=== PATIENT | male | born 1970 | race Caucasian/White ===

== ENCOUNTER 2020-02-17 23:45 | Emergency (ER) | payer MEDICAID ==
[~2020-02-17] VITALS: Ht 182.9 cm; Wt 84.1 kg
[2020-02-17 23:50] VITALS: BP 152/97
[2020-02-18] MEDS ORDERED: SULF1TAB49 PO (00:23)
[2020-02-18] MEDS ORDERED: CEPH500C5 PO (00:23)
[2020-02-18] MEDS ORDERED: sulfamethoxazole/trimethoprim DS (800/160mg) tablet PO ONE (00:25)
[2020-02-18] MEDS ORDERED: cephalexin 250mg capsule PO ONE (00:25)
== END 2020-02-18 00:59 | disposition home or self-care (01) ==
LOC: ER 23:46
DX: L03.116 Cellulitis of left lower limb (principal); L02.416 Cutaneous abscess of left lower limb; F11.10 Opioid abuse, uncomplicated; F17.200 Nicotine dependence, unspecified, uncomplicated; Z79.2 Long term (current) use of antibiotics
CPT/HCPCS: 99284

== ENCOUNTER 2020-09-04 12:54 | Emergency (ER) | payer MEDICAID ==
[~2020-09-04] VITALS: Ht 182.9 cm; Wt 88.3 kg
[~2020-09-04 12:54] MED LIST: CEPH-585 PO
[2020-09-04] MEDS ORDERED: sulfamethoxazole/trimethoprim DS (800/160mg) tablet PO ONE (13:50)
[2020-09-04] MEDS ORDERED: cephalexin 500mg capsule PO ONE (13:50)
[2020-09-04] MEDS ORDERED: NORMAL SALINE IV STA (16:06)
[2020-09-04] MEDS ORDERED: GENTAMICIN IV STA (16:06)
[2020-09-04] MEDS ORDERED: probenecid 500mg tablet PO ONE (16:10)
[2020-09-04] MEDS ORDERED: CEPH-585 PO (16:20)
[2020-09-04] MEDS ORDERED: SULF1TAB45 PO (16:20)
[2020-09-04] MEDS ORDERED: ampicillin/sulbac 3gm/NS 100ml 100 ML IV ONE (16:30)
[2020-09-04] MEDS ORDERED: gentamicin inj 450 MG in normal saline 100ml IV soln 88.75 ML IV STA (16:32)
[2020-09-04 19:22] VITALS: BP 127/73
[2020-09-04] MEDS ORDERED: ampicillin/sulbac 3gm/NS 100ml 100 ML IV SCH (20:00)
== END 2020-09-04 19:23 | disposition home or self-care (01) ==
LOC: ER 12:54
DX: L03.115 Cellulitis of right lower limb (principal); Z90.89 Acquired absence of other organs; Z79.899 Other long term (current) drug therapy
CPT/HCPCS: 76937; 96365; 96368; 99284; J1580; J0295

== ENCOUNTER 2020-10-04 01:43 | Inpatient (IN) | payer MEDICAID ==
[~2020-10-04] VITALS: Ht 182.9 cm; Wt 86.4 kg
[2020-10-04] MEDS ORDERED: piperacillin/tazo 3.375gm/50ml 50 ML IV ONE (02:05)
[2020-10-04] MEDS ORDERED: ketorolac trometh. 30mg/ml inj. IV ONE (02:05)
[2020-10-04] MEDS ORDERED: vancomycin/NS 1 GM ADD-VANTAGE 250 ML IV ONE (02:05)
[2020-10-04] MEDS ORDERED: iohexol 300mg/ml 100ml inj. ONE (02:07)
[2020-10-04 02:24] LABS: BASOPHILS # (AUTO) 0.1 X10'3 (0-0.2); BASOPHILS % (AUTO) 0.7 % (0-1); EOSINOPHILS # (AUTO) 0.4 X10'3 (0-0.9); EOSINOPHILS % (AUTO) 3.3 % (0-6); HEMATOCRIT 37.9 % (42.0-52.0); HEMOGLOBIN 12.7 g/dl (14.0-17.9); LYMPHOCYTES # (AUTO) 2.6 X10'3 (1.1-4.8); LYMPHOCYTES % (AUTO) 21.9 % (21-51); MEAN CORPUSCULAR HEMOGLOBIN 28.6 PG (27.0-31.0); MEAN CORPUSCULAR HGB CONC 33.4 g/dL (33.0-36.5); MEAN CORPUSCULAR VOLUME 85.6 FL (78-98); MEAN PLATELET VOLUME 8.1 FL (7.4-10.4); MONOCYTES % (AUTO) 8.7 % (2-12); NEUTROPHILS # (AUTO) 7.7 X10'3 (1.8-7.7); NEUTROPHILS % (AUTO) 65.4 % (42-75); PLATELET COUNT 242 X10'3 (140-440); RED BLOOD COUNT 4.43 X10'6 (4.70-6.10); WHITE BLOOD COUNT 11.8 X10'3 (4.5-11.0)
[2020-10-04 02:26] LABS: ALANINE AMINOTRANSFERASE 51 U/L (12-78); ALBUMIN 3.4 G/DL (3.4-5.0); ALBUMIN/GLOBULIN RATIO 0.7 (1.1-1.5); ALKALINE PHOSPHATASE 110 IU/L (46-116); ANION GAP 8 (8-16); ASPARTATE AMINO TRANSFERASE 32 U/L (10-37); BILIRUBIN,TOTAL 0.6 MG/DL (0.1-1.0); BLOOD UREA NITROGEN 14 MG/DL (7-18); BUN/CREATININE RATIO 12.6 (5.4-32.0); CALCIUM 8.4 MG/DL (8.5-10.1); CHLORIDE 104 MMOL/L (99-107); CREATININE 1.11 MG/DL (0.60-1.10); GLUCOSE 97 MG/DL (70-104); POTASSIUM 4.1 MMOL/L (3.5-5.1); SODIUM 140 MMOL/L (135-145); TOTAL PROTEIN 8.2 G/DL (6.4-8.2); eGFR 71 ML/MIN
[2020-10-04 02:45] LABS: COLOR,URINE YELLOW (Yellow); GLUCOSE, URINE NEGATIVE (Neg); KETONES,URINE NEGATIVE (Neg); LEUKOCYTE ESTERASE ,URINE NEGATIVE (Neg); NITRITES, URINE NEGATIVE (Neg); OCCULT BLOOD,URINE NEGATIVE (Neg); PROTEIN,URINE NEGATIVE (Neg)
[2020-10-04 02:55] LABS: CLARITY,URINE CLEAR (Clear); UA COLLECTION TYPE CLN CATCH MIDSTREAM
[2020-10-04] MEDS ORDERED: NO HOME MEDS (03:03)
[2020-10-04] MEDS ORDERED: potassium Cl 20 mEq SR tablet PO PRN (04:05)
[2020-10-04] MEDS ORDERED: magnesium Cl slow-release 64mg tablet PO PRN (04:05)
[2020-10-04] MEDS ORDERED: magnesium hydroxide 30ml (MOM) UD suspension PO PRN (04:05)
[2020-10-04] MEDS ORDERED: acetaminophen 325mg tablet PO PRN (04:05)
[2020-10-04] MEDS ORDERED: magnesium 4gm in 100ml NS 100 ML IV PRN (04:05)
[2020-10-04] MEDS ORDERED: mag hydrox/Alum hydrox/simeth 30ml oral suspension PO PRN (04:05)
[2020-10-04] MEDS ORDERED: HYDROcodone/acetaminophen 5mg/325mg tablet PO PRN (04:05)
[2020-10-04] MEDS ORDERED: magnesium 2GM in 50ml NS 50 ML IV PRN (04:05)
[2020-10-04] MEDS ORDERED: potassium Cl 40MEQ/1/2NS 520ml 520 ML IV PRN ×2 (04:05)
[2020-10-04 05:25] VITALS: BP 122/76
--- NOTE | 2020-10-04 05:25 | NUR ---
PATIENT ADMITTED TO ROOM 349B FROM ER FOR CELLULITIS TO LEFT ARM. PLACED COMFORTABLE IN BED. VITAL SIGNS TAKEN AND RECORDED.
--- NOTE | 2020-10-04 06:30 | NUR ---
Problems reprioritized. Patient report given, questions answered & plan of care reviewed with ABENA ALMONTE.
[2020-10-04 07:00] VITALS: BP 131/82
--- NOTE | 2020-10-04 07:10 | NUR ---
Patient in room [facility] 349. I have received report from Raven Carbajal RN and had the opportunity to ask questions and assume patient care.
[2020-10-04] MEDS: K and/or MAG REPLACEMENT MC SCH ×2 (08:00→20:00)
[2020-10-04] MEDS: vancomycin/NS 1 GM ADD-VANTAGE 250 ML IV SCH (09:45)
[2020-10-04] MEDS: ondansetron/PF 4mg/2ml inj IV PRN (09:47)
[2020-10-04 11:00] VITALS: BP 116/41
[2020-10-04] MEDS: methadone 10mg tablet PO SCH ×2 (13:51→23:43)
[2020-10-04] MEDS: piperacillin/tazo 3.375gm/50ml 50 ML IV SCH ×2 (16:25→23:43)
--- NOTE | 2020-10-04 18:23 | NUR ---
Patient in room [facility] 349. I have received report from Raven Carbajal RN and had the opportunity to ask questions and assume patient care.
--- NOTE | 2020-10-04 18:30 | NUR ---
Patient in room [facility] 349. I have received report from ABENA ALMONTE and had the opportunity to ask questions and assume patient care.
[2020-10-04 20:00] VITALS: BP 123/66
[2020-10-04] MEDS: lactobacillus rhamnosus 10,000 MMU CELLS/CAPSULE PO SCH (20:47)
[2020-10-05] VITALS: BP 120/71
--- NOTE | 2020-10-05 01:10 | NUR ---
PAGED DR. AMATO FOR POSITIVE BLOOD CULTURE GRAM + COCCI IN CLUSTERS AEROBIC BOTTLE DRAWN 10/04/20.
[2020-10-05] MEDS: vancomycin/NS 1 GM ADD-VANTAGE 250 ML IV SCH ×3 (04:01→22:49)
[2020-10-05] MEDS: morphine 2 MG/ML inj. syringe IV PRN ×5 (04:02→23:29)
[2020-10-05] MEDS: ondansetron/PF 4mg/2ml inj IV PRN (04:05)
--- NOTE | 2020-10-05 06:25 | NUR ---
Problems reprioritized. Patient report given, questions answered & plan of care reviewed with JUWAN RN.
--- NOTE | 2020-10-05 06:25 | NUR ---
Patient in room [facility] 349. I have received report from Raven Carbajal RN and had the opportunity to ask questions and assume patient care.
[2020-10-05 06:30] VITALS: BP 114/72
[2020-10-05] MEDS: methadone 10mg tablet PO SCH ×2 (08:34→20:41)
[2020-10-05] MEDS: lactobacillus rhamnosus 10,000 MMU CELLS/CAPSULE PO SCH ×2 (08:34→20:42)
[2020-10-05] MEDS: piperacillin/tazo 3.375gm/50ml 50 ML IV SCH ×2 (08:38→17:15)
[2020-10-05 09:07] LABS: BASOPHILS # (AUTO) 0.1 X10'3 (0-0.2); BASOPHILS % (AUTO) 1.2 % (0-1); EOSINOPHILS # (AUTO) 0.1 X10'3 (0-0.9); EOSINOPHILS % (AUTO) 0.5 % (0-6); HEMATOCRIT 33.8 % (42.0-52.0); HEMOGLOBIN 11.5 g/dl (14.0-17.9); LYMPHOCYTES # (AUTO) 2.2 X10'3 (1.1-4.8); LYMPHOCYTES % (AUTO) 17.5 % (21-51); MEAN CORPUSCULAR HEMOGLOBIN 28.8 PG (27.0-31.0); MEAN CORPUSCULAR HGB CONC 34.1 g/dL (33.0-36.5); MEAN CORPUSCULAR VOLUME 84.3 FL (78-98); MEAN PLATELET VOLUME 8.5 FL (7.4-10.4); MONOCYTES # (AUTO) 0.7 X10'3 (0-0.9); MONOCYTES % (AUTO) 5.8 % (2-12); NEUTROPHILS # (AUTO) 9.4 X10'3 (1.8-7.7); PLATELET COUNT 209 X10'3 (140-440); RED BLOOD COUNT 4.01 X10'6 (4.70-6.10); RED CELL DISTRIBUTION WIDTH 16.7 % (11.5-14.5); WHITE BLOOD COUNT 12.5 X10'3 (4.5-11.0)
[2020-10-05 09:31] LABS: ALANINE AMINOTRANSFERASE 39 U/L (12-78); ALBUMIN 2.8 G/DL (3.4-5.0); ALBUMIN/GLOBULIN RATIO 0.6 (1.1-1.5); ALKALINE PHOSPHATASE 93 IU/L (46-116); ANION GAP 11 (8-16); ASPARTATE AMINO TRANSFERASE 28 U/L (10-37); BILIRUBIN,TOTAL 0.5 MG/DL (0.1-1.0); BLOOD UREA NITROGEN 10 MG/DL (7-18); BUN/CREATININE RATIO 11.6 (5.4-32.0); CALCIUM 8.3 MG/DL (8.5-10.1); CHLORIDE 104 MMOL/L (99-107); CREATININE 0.86 MG/DL (0.60-1.10); GLUCOSE 119 MG/DL (70-104); MAGNESIUM 2.2 MG/DL (1.5-2.4); POTASSIUM 3.4 MMOL/L (3.5-5.1); SODIUM 140 MMOL/L (135-145); TOTAL CARBON DIOXIDE 24.6 MMOL/L (24-32); TOTAL PROTEIN 7.4 G/DL (6.4-8.2); eGFR > 90 ML/MIN
[2020-10-05] MEDS: K and/or MAG REPLACEMENT MC SCH ×2 (09:43→20:00)
[2020-10-05] MEDS: potassium Cl 20 mEq SR tablet PO PRN ×3 (10:11→17:53)
[2020-10-05 11:00] VITALS: BP 143/74
[2020-10-05] MEDS ORDERED: VANCOMYCIN LEVEL IV ONE (14:30)
--- NOTE | 2020-10-05 18:20 | NUR ---
Problems reprioritized. Patient report given, questions answered & plan of care reviewed with Raven Carbajal RN.
--- NOTE | 2020-10-05 18:30 | NUR ---
Patient in room [facility] 349. I have received report from JUWAN ALMONTE and had the opportunity to ask questions and assume patient care.
[2020-10-05 20:00] VITALS: BP 103/58
[2020-10-06] VITALS (19 sets, daily range): BP systolic 112–161; BP diastolic 63–99
[2020-10-06] MEDS: piperacillin/tazo 3.375gm/50ml 50 ML IV SCH ×3 (00:30→16:07)
[2020-10-06] MEDS: morphine 2 MG/ML inj. syringe IV PRN ×4 (03:56→20:37)
--- NOTE | 2020-10-06 06:30 | NUR ---
Problems reprioritized. Patient report given, questions answered & plan of care reviewed with NANDINI ALMONTE.
--- NOTE | 2020-10-06 06:35 | NUR ---
Patient in room [facility] 349. I have received report from lauren mauro and had the opportunity to ask questions and assume patient care.
[2020-10-06 07:38] LABS: BASOPHILS # (AUTO) 0.1 X10'3 (0-0.2); BASOPHILS % (AUTO) 0.7 % (0-1); EOSINOPHILS # (AUTO) 0.2 X10'3 (0-0.9); HEMATOCRIT 39.3 % (42.0-52.0); HEMOGLOBIN 13.3 g/dl (14.0-17.9); LYMPHOCYTES # (AUTO) 2.6 X10'3 (1.1-4.8); MEAN CORPUSCULAR HEMOGLOBIN 28.8 PG (27.0-31.0); MEAN CORPUSCULAR VOLUME 84.8 FL (78-98); MONOCYTES % (AUTO) 8.3 % (2-12); NEUTROPHILS # (AUTO) 7.6 X10'3 (1.8-7.7); PLATELET COUNT 290 X10'3 (140-440); RED BLOOD COUNT 4.63 X10'6 (4.70-6.10); RED CELL DISTRIBUTION WIDTH 17.3 % (11.5-14.5); WHITE BLOOD COUNT 11.5 X10'3 (4.5-11.0)
[2020-10-06 07:56] LABS: ALANINE AMINOTRANSFERASE 35 U/L (12-78); ALBUMIN 3.1 G/DL (3.4-5.0); ALBUMIN/GLOBULIN RATIO 0.6 (1.1-1.5); ALKALINE PHOSPHATASE 92 IU/L (46-116); ANION GAP 10 (8-16); ASPARTATE AMINO TRANSFERASE 22 U/L (10-37); BILIRUBIN,TOTAL 0.4 MG/DL (0.1-1.0); BLOOD UREA NITROGEN 8 MG/DL (7-18); BUN/CREATININE RATIO 9.5 (5.4-32.0); CALCIUM 8.8 MG/DL (8.5-10.1); CHLORIDE 105 MMOL/L (99-107); CREATININE 0.84 MG/DL (0.60-1.10); GLUCOSE 95 MG/DL (70-104); MAGNESIUM 2.1 MG/DL (1.5-2.4); POTASSIUM 3.7 MMOL/L (3.5-5.1); SODIUM 141 MMOL/L (135-145); TOTAL CARBON DIOXIDE 26.2 MMOL/L (24-32); TOTAL PROTEIN 8.2 G/DL (6.4-8.2); eGFR > 90 ML/MIN
[2020-10-06] MEDS: K and/or MAG REPLACEMENT MC SCH ×2 (08:00→20:00)
[2020-10-06] MEDS: vancomycin/NS 1 GM ADD-VANTAGE 250 ML IV SCH ×3 (08:14→22:44)
[2020-10-06] MEDS: lactobacillus rhamnosus 10,000 MMU CELLS/CAPSULE PO SCH ×2 (08:14→20:37)
[2020-10-06] MEDS: methadone 10mg tablet PO SCH ×2 (08:14→20:37)
[2020-10-06] MEDS ORDERED: ondansetron 4mg rapidly disintigrating tab PO PRN (11:30)
[2020-10-06] MEDS ORDERED: VANCOMYCIN LEVEL IV ONE (14:30)
[2020-10-06 16:19] LABS: PARTIAL THROMBOPLASTIN TIME 25 SECONDS (22-32)
[2020-10-06] MEDS ORDERED: hydrALAZINE 20mg/ml inj. IV PRN (17:40)
[2020-10-06] MEDS ORDERED: ringers solution, lacted 1,000 ML IV SCH (17:40)
[2020-10-06] MEDS ORDERED: ondansetron/PF 4mg/2ml inj IV PRN (17:40)
[2020-10-06] MEDS ORDERED: labetalol 20mg/4ml (5mg/ml) syringe IV PRN (17:40)
[2020-10-06] MEDS ORDERED: morphine 4 MG/ML inj SYRINge IV PRN (17:40)
[2020-10-06] MEDS ORDERED: HYDROmorphone/PF 0.2 MG/ML SYRINGE IV PRN (17:40)
[2020-10-06] MEDS ORDERED: morphine 2 MG/ML inj. syringe IV PRN (17:40)
[2020-10-06] MEDS ORDERED: MIDAZolam 1 MG/ML 5ML VIAL ONE (17:44)
[2020-10-06] MEDS ORDERED: fentaNYL/PF 50MCG/1 ML 2ML syringe ONE (17:44)
[2020-10-06] MEDS ORDERED: LIDOcaine 2% (20mg/ml) 5ml vial ONE (17:46)
[2020-10-06] MEDS ORDERED: propofol inj 20 ML IV ONE (17:46)
[2020-10-06] MEDS ORDERED: ondansetron/PF 4mg/2ml inj ONE (17:46)
[2020-10-06] MEDS ORDERED: BUPIVAcaine/PF 2.5 mg/ml (0.25%) 30ml vial ONE (17:53)
--- NOTE | 2020-10-06 18:00 | NUR ---
In the OR at 1800 Addendum: 10/06/20 at 2050 by Marleni Colvin RN Amended: Links added.
[2020-10-06] MEDS ORDERED: sevoflurane 250ml liquid IH ONE (18:05)
[2020-10-06] MEDS ORDERED: dexamethasone sod phosphate 10mg/ml inj ONE (18:05)
--- NOTE | 2020-10-06 18:30 | NUR ---
patient agitated at times. Iv removed from left neck and resited by ER staff to right foot. Difficulty also accessing blood for labs new IV placed in right forearm. patient given MS for pain with some relief in left arm. . patient seen by Dr Patton is for surgery. patient prepared for surgery. Taken to to surgery [id number] Report given to Latha ALMONTE
--- NOTE | 2020-10-06 18:43 | NUR ---
Patient in room [facility] 349. I have received report from NANDINI ALMONTE and had the opportunity to ask questions and assume patient care. Addendum: 10/06/20 at 1844 by Marleni Colvin RN Amended: Links added.
--- NOTE | 2020-10-06 18:45 | NUR ---
Received from OR via BED, accompanied by Anesthesiologist EMILI and report given by Anesthesiolgist. PT DROWSY, OXYGENATING WELL ON 10 LPM O2 VIA MASK, NO RESP DISTRESS NOTED. DENIES NAUSEA, C/O SEVERE 10/10 PAIN TO L HAND WHEN AWAKE, MOANING AND CRYING. MEDICATED PRN, SEE EMAR. VSS, SCDS ON.
[2020-10-06] MEDS: HYDROmorphone/PF 0.2 MG/ML SYRINGE IV PRN ×3 (19:11→19:47)
--- NOTE | 2020-10-06 20:00 | NUR ---
Patient in room [facility] 349. I have received report from [facility] wire spooler and had the opportunity to ask questions and will assume patient care upon arrival to the floor. Addendum: 10/06/20 at 2000 by Marleni Colvin RN Amended: Links added.
--- NOTE | 2020-10-06 20:10 | NUR ---
VSS, TOLERATING PO FLUIDS WELL. PAIN IN LEFT WRIST/HAND SURGERY SITE STILL SEVERE, DESPITE MULTIPLE NARCOTICS GIVEN IN PACU. PT RESTING QUIETLY AT THE TIME OF TRANSFER. REPORT GIVEN TO RECEIVING RN ON SURGICAL FLOOR, PT TRANSFERRED IN STABLE CONDITION.
--- NOTE | 2020-10-06 20:41 | NUR ---
medicated for pain with morphine 2mg and hs medications given. drank 400 apple juice with water and ice and ate a turkey sandwich. pt tolerated well. then voided 400cc in the urinal.
--- NOTE | 2020-10-06 20:50 | NUR ---
in the or Addendum: 10/06/20 at 2049 by Marleni Colvin RN Amended: Links added.
--- NOTE | 2020-10-06 21:15 | NUR ---
pt ate whole turkey sandwich no complaints, talked with girlfriend on the phone.
--- NOTE | 2020-10-06 23:00 | NUR ---
resting eyes closed arm elevated up on pillows.
[2020-10-07] VITALS: BP 131/44
[2020-10-07] MEDS: morphine 2 MG/ML inj. syringe IV PRN ×5 (00:27→22:52)
[2020-10-07] MEDS: piperacillin/tazo 3.375gm/50ml 50 ML IV SCH ×3 (00:28→17:03)
--- NOTE | 2020-10-07 00:34 | NUR ---
pt medicated for pain with 2mg of morphine and left arm reelevated with pillows for pain and swelling control. good cms noted at this time. teaching regarding medication and importance of treatment gone over with the pt and teaching regarding how bad this infection is. pt appears to understand this by his statement.
--- NOTE | 2020-10-07 04:40 | NUR ---
pt medicated for pain 7-8/10 to left hand with morphine after voiding in the urinal.
--- NOTE | 2020-10-07 06:22 | NUR ---
Problems reprioritized. Patient report given, questions answered & plan of care reviewed with EZ ALMONTE. Addendum: 10/07/20 at 0622 by Marleni Colvin RN Amended: Links added.
[2020-10-07 07:00] VITALS: BP 112/64
[2020-10-07] MEDS: K and/or MAG REPLACEMENT MC SCH ×2 (08:00→20:00)
[2020-10-07] MEDS: methadone 10mg tablet PO SCH ×2 (08:33→20:39)
[2020-10-07] MEDS: lactobacillus rhamnosus 10,000 MMU CELLS/CAPSULE PO SCH ×2 (08:33→20:39)
[2020-10-07] MEDS: vancomycin/NS 1 GM ADD-VANTAGE 250 ML IV SCH ×3 (08:33→22:46)
[2020-10-07 11:00] VITALS: BP_SYST 104; BP_SYST 92; BP_DIAS 57; BP_DIAS 62
--- NOTE | 2020-10-07 18:14 | NUR ---
Problems reprioritized. Patient report given, questions answered & plan of care reviewed with Marleni ALMONTE.
--- NOTE | 2020-10-07 18:26 | NUR ---
Patient in room [facility] 349. I have received report from EZ ALMONTE and had the opportunity to ask questions and assume patient care. Addendum: 10/07/20 at 1826 by Marleni Colvin RN Amended: Links added.
[2020-10-07 19:00] VITALS: BP 125/60
[2020-10-07 19:40] VITALS: BP 125/60
--- NOTE | 2020-10-07 20:10 | NUR ---
iv zosyn infused and right foot wright iv site intact and saline flush done. pt tolerated fair no redness or swelling at the site.
--- NOTE | 2020-10-07 21:41 | NUR ---
pt resting without s&s of distress.
--- NOTE | 2020-10-07 23:00 | NUR ---
pt medicated for pain with morphine and turkey sandwich jello and apple juice given on request.
[2020-10-07 23:10] VITALS: BP 128/71
[2020-10-08] MEDS: piperacillin/tazo 3.375gm/50ml 50 ML IV SCH ×2 (00:34→09:07)
--- NOTE | 2020-10-08 00:43 | NUR ---
PT AWAKE WATCHING TV AT THIS TIME. no complaints
--- NOTE | 2020-10-08 03:50 | NUR ---
resting without changes
[2020-10-08] MEDS: morphine 2 MG/ML inj. syringe IV PRN ×2 (04:09→11:03)
--- NOTE | 2020-10-08 04:12 | NUR ---
medicated for complaint of pain and urinal emptied. iv zosyn dose completed.
--- NOTE | 2020-10-08 05:57 | NUR ---
Problems reprioritized. Patient report given, questions answered & plan of care reviewed with EZ ALMONTE. Addendum: 10/08/20 at 0558 by Marleni Colvin RN Amended: Links added.
--- NOTE | 2020-10-08 06:04 | NUR ---
Patient in room [facility] 349. I have received report from Marleni ALMONTE and had the opportunity to ask questions and assume patient care.
[2020-10-08 07:00] VITALS: BP 121/75
[2020-10-08] MEDS: K and/or MAG REPLACEMENT MC SCH (08:00)
[2020-10-08] MEDS: lactobacillus rhamnosus 10,000 MMU CELLS/CAPSULE PO SCH (09:06)
[2020-10-08] MEDS: vancomycin/NS 1 GM ADD-VANTAGE 250 ML IV SCH (09:06)
[2020-10-08] MEDS: methadone 10mg tablet PO SCH (09:06)
[2020-10-08] MEDS ORDERED: CEPH-585 PO (10:45)
[2020-10-08] MEDS ORDERED: DOXY100C2 PO (10:47)
[2020-10-08 11:00] VITALS: BP 124/74
--- NOTE | 2020-10-08 14:27 | NUR ---
Patient was discharged and was educated on medications, wound care, medications, and worsening symptoms. Two IV's were removed and canula was intact. Patient states he had all belongs and understood he has an appt at 1000 on 10/11 for wound care at [facility]. Patient was wheeled down by auxiliary.
--- NOTE | 2020-10-09 13:50 | NUR ---
CASE MANAGEMENT DISCHARGE FOLLOW UP: T/c to pt, no answer, left message requesting callback.
== END 2020-10-08 13:15 | disposition home or self-care (01) | DRG 710 ==
LOC: ER 01:43 → ED HOLD 04:02 → SUR 3N 05:20
PROVIDERS: ADMIT Family Medicine; ATTEND Internal Medicine
PROC: BP2U1ZZ Computerized Tomography (CT Scan) of Left Upper Extremity using Low Osmolar Contrast (ICD-10-PCS; 2020-10-04)
PROC: 0J9K0ZZ Drainage of Left Hand Subcutaneous Tissue and Fascia, Open Approach (ICD-10-PCS; 2020-10-06)
PROC: 0J9H0ZZ Drainage of Left Lower Arm Subcutaneous Tissue and Fascia, Open Approach (ICD-10-PCS; principal; 2020-10-06 18:05)
DX: A41.9 Sepsis, unspecified organism (principal); F11.90 Opioid use, unspecified, uncomplicated; F19.10 Other psychoactive substance abuse, uncomplicated; L03.114 Cellulitis of left upper limb; Z20.822 Contact with and (suspected) exposure to COVID-19; L02.512 Cutaneous abscess of left hand; Z59.0 Homelessness
CPT/HCPCS: 36415; 71045; 73201; 80053; 80202; 81003; 82948; 83605; 83735; 84145; 85025; 85610; 85730; 87040; 87077; 87081; 87186; 87426; 96365; 96367; 99285; A4215; A4618; A6222; A6449; A7000; G0378; J1100; J1170; J1885; J2001; J2250; J2270; J2405; J2543; J2704; J3010; J3370; J3490; J7120; Q9967